=== PATIENT | male | born 1995 | race Caucasian/White ===

== ENCOUNTER 2019-11-13 12:32 | Emergency (ER) | payer OTHER, SELFPAY ==
--- NOTE | ~2019-11-13 | XR_ITS ---
XR ankle RT min 3V DATE: 11/13/2019 12:55 INDICATION: Injury. Lateral pain. TECHNIQUE: 4 views COMPARISON: None FINDINGS: There is a linear oblique fracture of the lateral malleolus with less than one cortical wid th lateral displacement. There is overlying soft tissue swelling. The medial malleolus and posterior malleolus are intact. Ankle mortise is preserved. IMPRESSION: Minimally displaced lateral malleolar fracture with overlying soft tissue swelling Reviewed, dictated and finalized at location A.
[2019-11-13 12:42] VITALS: BP 124/90; PULSE 122; RESP 18; TEMP 36.7; O2SAT 100
--- NOTE | 2019-11-13 12:48 | ED.LOWEXIN ---
HPI - Extremity Injury (Lower) General Chief Complaint: Extremity Injury, Lower <Drea Lee PA-C - Last Filed: 11/13/19 13:14> Stated Complaint: R ankle pain <ANABELL Celeste Last Filed: 11/13/19 13:14> Time Seen by Provider: 11/13/19 12:40 <Drea Lee PA-C - Last Filed: 11/13/19 13:14> Source: patient <ANABELL Celeste Last Filed: 11/13/19 13:14> Mode of arrival: wheelchair <ANABELL Celeste Last Filed: 11/13/19 13:14> Limitations: no limitations <ANABELL Celeste Last Filed: 11/13/19 13:14> History of Present Illness HPI Narrative: This is a 24 year old male that presents to the ER for right ankle injury sustained last night. Reports he slipped and fell down about 5 stairs. Reports since he has had pain and swelling in the ankle. He has not been able to bear weight due to pain. Denies decreased ROM or numbness. <Drea Lee PA-C - Last Filed: 11/13/19 13:14> Related Data Home Medications: Home Medications Medication Instructions Recorded Confirmed dextroamphetamine-amphetamine PO 11/13/19 11/13/19 pantoprazole PO 11/13/19 <Drea Lee PA-C - Last Filed: 11/13/19 13:14> Allergies/Adverse Reactions: Allergies Allergy/AdvReac Type Severity Reaction Status Date / Time No Known Allergies Allergy Verified 11/13/19 12:46 <Drea Lee PA-C - Last Filed: 11/13/19 13:14> Review of Systems Review of Systems: Narrative: CONSTITUTIONAL: Denies fever MUSCULOSKELETAL: Reports joint pain, and myalgia. NEUROLOGIC: Denies numbness <ANABELL Celeste Last Filed: 11/13/19 13:14> All systems reviewed & are unremarkable except as noted in HPI and below <ANABELL Celeste Last Filed: 11/13/19 13:14> PMFSH Past Medical History Medical History: Medical History (Updated 11/13/19 @ 13:12 by Drea Lee PA-C) History of ADHD History of gastroesophageal reflux (GERD) <Drea Lee PA-C - Last Filed: 11/13/19 13:14> Social History Social History: Social History (Updated 11/13/19 @ 12:50 by Drea Lee PA-C) Smoking status: Never smoker Gender identity (if verbalized by the patient): Male <Drea Lee PA-C - Last Filed: 11/13/19 13:14> Exam Narrative: Exam Narrative: GENERAL: Well-appearing, well-nourished, and in no acute distress. HEAD: Normocephalic, atraumatic. EYES: EOMI. EXTREMITIES: Normal range of motion. Mild swelling about the right lateral malleoli, tender to palpation. Normal DP pulses SKIN: Warm, dry, no rash. NEURO: No focal deficits. Alert and oriented x3. PSYCH: Normal mood and affect <Drea Lee PA-C - Last Filed: 11/13/19 13:14> Course Consultations Consultation #1: Spoke with Dr. Jaime about patient work-up will follow-up in clinic <Drea Lee PA-C - Last Filed: 11/13/19 13:14> Date: 11/13/19 <Drea Lee PA-C - Last Filed: 11/13/19 13:14> Time: 13:09 <Drea Lee PA-C - Last Filed: 11/13/19 13:14> Vital Signs Vital signs: Vital Signs Temperature 36.7 C 11/13/19 12:42 Pulse Rate 122 H 11/13/19 12:42 Respiratory Rate 18 11/13/19 12:42 Blood Pressure 124/90 11/13/19 12:42 Pulse Oximetry 100 11/13/19 12:42 Temperature 36.7 C 11/13/19 12:42 Pulse Rate 122 H 11/13/19 12:42 Respiratory Rate 18 11/13/19 12:42 Blood Pressure 124/90 11/13/19 12:42 Pulse Oximetry 100 11/13/19 12:42 <Drea Lee PA-C - Last Filed: 11/13/19 13:14> Vital Signs Temperature 36.7 C 11/13/19 12:42 Pulse Rate 122 H 11/13/19 12:42 Respiratory Rate 18 11/13/19 12:42 Blood Pressure 124/90 11/13/19 12:42 Pulse Oximetry 100 11/13/19 12:42 Temperature 36.7 C 11/13/19 12:42 Pulse Rate 122 H 11/13/19 12:42 Respiratory Rate 18 11/13/19 12:42 Blood Pressure 124/90 11/13/19 12:42 Pulse Oximetry 100 11/13/19 12:42 <Fab Loco MD - [facility]
== END 2019-11-13 13:50 | disposition home or self-care (01) ==
PROVIDERS: Emergency Provider Emergency Medicine
DX: S82.61XA Displaced fracture of lateral malleolus of right fibula, initial encounter for closed fracture (principal); F90.9 Attention-deficit hyperactivity disorder, unspecified type; K21.9 Gastro-esophageal reflux disease without esophagitis; W10.9XXA Fall (on) (from) unspecified stairs and steps, initial encounter
CPT/HCPCS: 29515; 73610; 99284; A9270

== ENCOUNTER → 2021-06-12 03:25 | Outpatient (CLI) | payer OTHER, SELFPAY ==
[2021-06-12 18:29] LABS: SARS-CoV-2 RNA PCR Negative
== END ==
PROVIDERS: PCP Family Medicine Sports Medicine; Visit Provider Nurse Practitioner Adult Health
DX: R68.89 Other general symptoms and signs (principal); Z20.822 Contact with and (suspected) exposure to COVID-19
CPT/HCPCS: C9803; U0003; U0005

== ENCOUNTER 2023-05-11 03:35 | Emergency (ER) | payer OTHER, SELFPAY ==
[2023-05-11 03:38] VITALS: PULSE 95; RESP 18; O2SAT 99
[2023-05-11 03:54] VITALS: BP 109/80; TEMP 37
[2023-05-11 04:03] LABS: Glucose Point of Care 178 mg/dl (65-105)
--- NOTE | 2023-05-11 04:14 | ED.HEATRA ---
HPI - Head Injury General Chief complaint: Head Injury Stated complaint: Head Lac Source: patient Mode of arrival: ambulatory Limitations: no limitations History of Present Illness HPI Narrative: this is a 28-year-old male that presents with non gaping well approximate laceration approximately3.5cm in length above his right eyebrow after he was at a bar and fell off a bar stool, he did not use consciousness no neurological deficits patient has been drinking. Currently no headache no blurry vision no chest pain no shortness of breath no fever chills. Complaint: head injury Onset (ago): hour(s) Place: other Loss of Consciousness: no Location of injury: face Severity: mild Related Data Home Medications Medication Instructions Recorded Confirmed dextroamphetamine-amphetamine ER PO 11/13/19 02/16/20 20 mg 24hr capsule,extend release pantoprazole 40 mg tablet,delayed PO 11/13/19 02/16/20 release Allergies Allergy/AdvReac Type Severity Reaction Status Date / Time No Known Allergies Allergy Verified 12/28/19 09:48 Review of Systems Review of Systems: All systems reviewed & are unremarkable except as noted in HPI and below PMFSH Past Medical History Medical History (Updated 05/11/23 @ 04:20 by Adrian Salmon MD) BMI less than 19,adult 18.1 History of ADHD History of gastroesophageal reflux (GERD) Surgical History Surgical History History of colonoscopy Family History Family History Father Colon cancer Social History Social History Smoking status: Former smoker Alcohol intake: current Alcohol use details: Moderate Living arrangements: with family Additional living arrangements comments: Girlfriend Occupation/Education: occupation Additional occupation/education comments: [id number] Gender identity (if verbalized by the patient): Male Exam Const: General: healthy appearing and no acute distress Limitations: no limitations HENMT: Head: normal to inspection Eyes: Conjunctivae: conjunctivae normal Pupils: Equal, round and reactive pupils present EOM: EOMs intact bilaterally Direct Ophthalmoscopy: no photophobia Neck: Neck: normal visual inspection Chest: Chest palpation & inspection: normal inspection of the chest Resp: Effort & Inspection: normal respiratory effort Auscultation: clear to auscultation bilaterally Cardio: Rate: regular rate Rhythm: regular rhythm GI: GI Palp: Yes Soft to palpation Skin: General skin exam: normal color Wounds: wounds noted Neuro: General: patient oriented x3 Gait exam (Neuro): Normal gait present Extrem: General: normal to inspection Psych: Mental Status: mental status grossly normal Affect: normal affect Course Course Emergency Course: Patient neurologically intact with no neurological deficits no headache, has a 3.5cm non gaping approximately laceration above his right eyebrow Dermabond was used on the laceration patient was updated with his tetanus. Vital Signs Vital signs: Vital Signs Pulse Rate 95 05/11/23 03:38 Respiratory Rate 18 05/11/23 03:38 Pulse Oximetry 99 05/11/23 03:38 Oxygen Delivery Room Air 05/11/23 03:38 Temperature 37.0 C 05/11/23 03:54 Pulse Rate 95 05/11/23 03:38 Respiratory Rate 18 05/11/23 03:38 Blood Pressure 109/80 05/11/23 03:54 Pulse Oximetry 99 05/11/23 03:38 Oxygen Delivery Room Air 05/11/23 03:38 Procedures Laceration Laceration 1: Site: face Side (If applicable): right Size (cm): 3.5 Description: linear Pre-repair: wound explored, irrigated and irrigated extensively ====== Skin Level ====== Skin layer closed with: dermabond ====== Subcutaneous Layer ====== ====== Muscle Layer ====== ====== Tendon Layer ==
[2023-05-11 04:15] VITALS: BP 124/82; PULSE 97; RESP 20; O2SAT 100
[2023-05-11] MEDS: TETANUS,DIPHTHERIA,AC PERTUSSIS ADULT 0.5 ML (ADACEL) IM (04:20)
== END 2023-05-11 04:35 | disposition home or self-care (01) ==
PROVIDERS: Emergency Provider Emergency Medicine; PCP Family Medicine Sports Medicine
DX: S01.81XA Laceration without foreign body of other part of head, initial encounter (principal); W17.89XA Other fall from one level to another, initial encounter; F90.9 Attention-deficit hyperactivity disorder, unspecified type; K21.9 Gastro-esophageal reflux disease without esophagitis; Z87.891 Personal history of nicotine dependence; Z23 Encounter for immunization; Z79.899 Other long term (current) drug therapy
CPT/HCPCS: 12013; 82948; 90471; 90715; 99282